=== PATIENT | female | born 1950 ===

== ENCOUNTER 2020-05-27 10:59 | Inpatient (IN) | payer OTHER ==
[~2020-05-27] VITALS: Ht 162.6 cm; Wt 107.5 kg
[2020-05-27] MEDS ORDERED: TENORMIN25 MG PO (13:02)
[2020-05-27] MEDS ORDERED: CIMBALTA PO (13:03)
[2020-05-27] MEDS ORDERED: ZESTRIL2.5 MG PO (13:03)
[2020-05-27] MEDS ORDERED: PREVACID PO (13:04)
[2020-05-27] MEDS ORDERED: SYNTHROID75 MCG PO (13:04)
[2020-05-27] MEDS ORDERED: SINGULAIR10 MG PO (13:05)
[2020-05-27] MEDS ORDERED: TRADJENTA PO (13:06)
[2020-06-02] MEDS ORDERED: TRADJENTA5 MG PO (07:55)
[2020-06-02] MEDS ORDERED: CYMBALTA60 MG PO (07:56)
[2020-06-02] MEDS ORDERED: PREVACID30 MG PO (07:56)
[2020-06-02] MEDS ORDERED: AMOX-CLAV 875-1 EACH PO (08:01)
[2020-06-02] MEDS ORDERED: NEURONTIN800 MG PO (08:01)
[2020-06-02] MEDS ORDERED: COLACE100 MG PO (08:01)
[2020-06-02] MEDS ORDERED: PERCOCET 5-3251 EACH PO (08:01)
[2020-06-02] MEDS ORDERED: MEDROLPACK PO (08:01)
[2020-06-02] MEDS ORDERED: DIAZEPAM10 MG PO (08:01)
== END 2020-06-03 12:53 | disposition home or self-care (01) | DRG 455 ==
LOC: O/R 06-02 06:20 → SURH 06-02 06:20 → O/R 06-02 11:00 → SURH 06-02 11:00
PROVIDERS: ADMIT Orthopaedic Surgery Orthopaedic Surgery of the Spine; ATTEND Orthopaedic Surgery Orthopaedic Surgery of the Spine
PROC: 0SG10K1 Fusion of 2 or more Lumbar Vertebral Joints with Nonautologous Tissue Substitute, Posterior Approach, Posterior Column, Open Approach (ICD-10-PCS; 2020-06-02)
PROC: 0ST20ZZ Resection of Lumbar Vertebral Disc, Open Approach (ICD-10-PCS; 2020-06-02)
PROC: 0SG10A0 Fusion of 2 or more Lumbar Vertebral Joints with Interbody Fusion Device, Anterior Approach, Anterior Column, Open Approach (ICD-10-PCS; principal; 2020-06-02 07:00)
DX: M41.56 Other secondary scoliosis, lumbar region (principal); M51.36 Other intervertebral disc degeneration, lumbar region; M48.061 Spinal stenosis, lumbar region without neurogenic claudication; I10 Essential (primary) hypertension; E03.8 Other specified hypothyroidism; E11.9 Type 2 diabetes mellitus without complications; Z79.4 Long term (current) use of insulin

== ENCOUNTER 2020-11-02 16:12 | Emergency (ER) | payer OTHER ==
[~2020-11-02] VITALS: Ht 162.6 cm; Wt 64.4 kg
[~2020-11-02 16:12] MED LIST: AMOX-CLAV 875-1 EACH PO; CIMBALTA PO; COLACE100 MG PO; CYMBALTA60 MG PO; DIAZEPAM10 MG PO; MEDROLPACK PO; NEURONTIN800 MG PO; PERCOCET 5-3251 EACH PO; PREVACID PO; PREVACID30 MG PO; SINGULAIR10 MG PO; SYNTHROID75 MCG PO; TENORMIN25 MG PO; TRADJENTA PO; TRADJENTA5 MG PO; ZESTRIL2.5 MG PO
== END 2020-11-02 22:33 | disposition home or self-care (01) ==
LOC: ER 16:12
DX: M54.5 Low back pain (principal); Z98.1 Arthrodesis status; Z20.828 Contact with and (suspected) exposure to other viral communicable diseases